=== PATIENT | female | born 1995 | race African-American/Black ===

== ENCOUNTER 2018-10-29 16:58 | Emergency (ER) | payer BC, SELFPAY ==
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
== END 2018-10-29 18:42 | disposition home or self-care (01) ==
LOC: SCSER 16:58
DX: S16.1XXA Strain of muscle, fascia and tendon at neck level, initial encounter (principal); S80.11XA Contusion of right lower leg, initial encounter; V89.2XXA Person injured in unspecified motor-vehicle accident, traffic, initial encounter
CPT/HCPCS: 72125

== ENCOUNTER 2020-06-07 09:30 | Emergency (ER) | payer SELFPAY ==
[2020-06-07] MEDS ORDERED: Ondansetron ODT 4 MG TAB ONE (11:48)
[2020-06-07] MEDS ORDERED: Ketorolac Tromethamine 30 MG/ML VIAL ONE (11:48)
== END 2020-06-07 12:13 | disposition home or self-care (01) ==
LOC: ERS 09:30
DX: R51.9 Headache, unspecified (principal); R11.0 Nausea
CPT/HCPCS: 96372; 99284; J1885; Q0162